=== PATIENT | male | born 1965 | race Caucasian/White ===

== ENCOUNTER → 2021-04-26 12:31 | Outpatient (CLI) | payer BC, SELFPAY ==
[2021-04-26 13:00] LABS: Basophils % 0.4 % (0.1-2.0); Eosinophils # 0.5 K/mm3 (0.0-0.4); Eosinophils % 5.6 % (0.1-12.0); Hematocrit 39.9 % (42.0-52.0); Hemoglobin 12.3 g/dL (14.1-18.0); Lymphocytes # 1.6 K/mm3 (0.7-4.5); Lymphocytes % 19.3 % (10-50); Mean Corpuscular HGB Conc 30.7 g/dL (31.8-35.4); Mean Corpuscular Hemoglobin 26.9 pg (27.0-31.2); Mean Corpuscular Volume 87.6 fl (80-94); Mean Platelet Volume 7.6 fl (7.4-10.4); Monocytes # 0.5 K/mm3 (0.1-1.0); Monocytes % 5.6 % (1.7-9.3); Neutrophils # 5.8 K/mm3 (1.8-7.8); Neutrophils % 69.1 % (37.0-80.0); Platelet Count 256 K/mm3 (142-424); Red Blood Count 4.56 M/mm3 (4.60-6.20); Red Cell Distribution Width 16.1 % (11.5-17.5); White Blood Count 8.4 K/mm3 (4.8-10.8)
[2021-04-29 07:14] LABS: D001-IgE D pteronyssinus 3.76 kU/L (Class III); D002-IgE D farinae 3.83 kU/L (Class III); E001-IgE Cat Dander <0.10 kU/L (Class 0); E005-IgE Dog Dander <0.10 kU/L (Class 0); E072-IgE Mouse Urine <0.10 kU/L (Class 0); G002-IgE Bermuda Grass <0.10 kU/L (Class 0); G006-IgE Timothy Grass <0.10 kU/L (Class 0); I006-IgE Cockroach, German <0.10 kU/L (Class 0); Immunoglobulin E, Total 75 IU/mL (6-495); M001-IgE Penicillium chrysogen <0.10 kU/L (Class 0); M002-IgE Cladosporium herbarum <0.10 kU/L (Class 0); M003-IgE Aspergillus fumigatus <0.10 kU/L (Class 0); M006-IgE Alternaria alternata <0.10 kU/L (Class 0); T001-IgE Maple/Box Elder <0.10 kU/L (Class 0); T003-IgE Common Silver Birch <0.10 kU/L (Class 0); T006-IgE Cedar, Mountain <0.10 kU/L (Class 0); T007-IgE Oak, White <0.10 kU/L (Class 0); T008-IgE Elm, American 0.14 kU/L (Class 0/I); T010-IgE Walnut 1.05 kU/L (Class II); T011-IgE Maple Leaf Sycamore <0.10 kU/L (Class 0); T014-IgE Cottonwood 0.11 kU/L (Class 0/I); T015-IgE Ash, White 0.34 kU/L (Class I); T022-IgE Pecan, Hickory 1.51 kU/L (Class III); T070-IgE White Mulberry <0.10 kU/L (Class 0); W001-IgE Ragweed, Short <0.10 kU/L (Class 0); W011-IgE Thistle, Russian <0.10 kU/L (Class 0); W014-IgE Pigweed, Common <0.10 kU/L (Class 0); W018-IgE Sheep Sorrel <0.10 kU/L (Class 0)
== END ==
PROVIDERS: Visit Provider Internal Medicine Pulmonary Disease
DX: J45.909 Unspecified asthma, uncomplicated (principal)
CPT/HCPCS: 36415; 82785; 85025; 86003

== ENCOUNTER 2021-04-29 10:00 | Outpatient (RCR) | payer BC, SELFPAY ==
--- NOTE | 2021-03-25 13:42 | HMH.SLDYSPHA ---
Speech & Language Evaluation Speech/Language Dysphagia Evaluation Start: 03/25/21 13:27 Freq: ONCE Status: Active Protocol: Document 03/25/21 13:27 GERALD (Rec: 03/25/21 13:42 GERALD [id number]) Dysphagia Assess/Goals/Plan Assessment Date of Evaluation: 03/25/21 Evaluation Type Initial Certification Assessment/Problems Dysphagia Does Patient Qualify for Service Yes Qualify/Failure Comment Based on Modified Barium Results from [facility] on 03/01/2021, Mr. Veliz did exhibit aspiration of thin liquids. Today, he exhibited coughing with thin liquids with no chin tuck. Recommendations PHYSICIAN CERTIFICATION: The specified therapy services are required, authorized, and reviewed every 30 days. Pt will be seen # times/week 2 for # weeks 4 Diet Recommendations Normal Liquid Type Recommendations Normal/Thin SL Swallow Guidelines Standard Aspiration Prec. Dysphagia Swallow Precautions/Strategies Sitting Upright (90 deg),Chin Tuck,Double Swallow,Small Bites and Sips,Alternate Liquids/Solids Plan Anticipate reaching STG in # weeks 2 Anticipate reaching LTG in # weeks 4 Pt/Guardian verbally ack understanding Yes of dx/prognosis/goals G -code Required No STG-Asp During/Laryngeal Closure Use Valsalva maneuver w/wo cues in # 10 trials STG-Asp Aft/Pyrif.-Hyolaryngeal Comp Perform head lift maneuver for # secs 30 w/wo cues in # trials 10 STG-Asp Aft/[place]-Post Phary Wall Use thin/spec. consistency liq.wash w/wo 1 chin-down every #bites w/wo cues in # trials 10 STG-Asp Aft/[place]-Pharyngeal W Remain upright at 90 degrees for 30 min 1 after any po intake w/wo cues in #trials Detention Goals Diet Regular with Liquids Thin Liquids General Information General Current Food Consistancy Regular,Thin Liquids Dentition Good Dentition Oxygen Status Room Air Facial Symmetry Symmetrical Patient Orientation Person,Place,Time,Situation Ability to Follow Directions Excellent Communication Ability No Impairment Voice Voice Quality Weak,Loss of Voice Voice Pitch Diplophonia Voice Loudness Severely Soft/Quiet,Limited Variation Dysphagia:Food Presentation Evaluation Food Type Pureed,Mechanical Soft,Regular ,Liquid,Pudding Normal/Thin Liquid Response
== END 2021-04-29 10:05 | disposition home or self-care (01) ==
LOC: ST 10:00
DX: I71.01 Dissection of thoracic aorta (principal)
CPT/HCPCS: 92526; 92610

== ENCOUNTER → 2021-05-31 10:51 | Outpatient (CLI) | payer BC, SELFPAY ==
--- NOTE | 2021-05-31 11:16 | ECG_ITS ---
APPROVED REPORT Exam: Resting ECG HR:63 bpm ECG Measurements Heart Rate 63 AXES AR 138 P 56 QRSd 92 QRS 89 QT 424 T 39 QTc 433 Conclusion Normal sinus rhythm Incomplete right bundle branch block Borderline ECG Electronically signed by : Isaac Browning MD 05/31/2021 20:59:54
[2021-05-31 12:10] LABS: Basophils % 0.5 % (0.1-2.0); Eosinophils # 0.2 K/mm3 (0.0-0.4); Eosinophils % 3.8 % (0.1-12.0); Hematocrit 40.2 % (42.0-52.0); Hemoglobin 12.5 g/dL (14.1-18.0); Lymphocytes % 15.6 % (10-50); Mean Platelet Volume 6.8 fl (7.4-10.4); Monocytes # 0.4 K/mm3 (0.1-1.0); Monocytes % 5.9 % (1.7-9.3); Neutrophils # 4.8 K/mm3 (1.8-7.8); Neutrophils % 74.2 % (37.0-80.0); Platelet Count 217 K/mm3 (142-424); Red Blood Count 4.79 M/mm3 (4.60-6.20); Red Cell Distribution Width 15.5 % (11.5-17.5); White Blood Count 6.5 K/mm3 (4.8-10.8)
[2021-05-31 12:18] LABS: Chloride 105 mmol/L (98-107); Potassium 3.9 mmoL/L (3.5-5.1); Sodium 141 mmol/L (136-145)
[2021-05-31 12:21] LABS: Anion Gap 10.9 mEq/L (5-15); Blood Urea Nitrogen 16 mg/dl (9-20); Calcium 8.7 mg/dl (8.4-10.2); Carbon Dioxide 29 mmol/L (22.0-30.0); Estimated Glomerular Filt Rate 99 ml/min (>60); GFR (African American) 120 ML/MIN (>60); Glucose 170 mg/dl (74-100)
== END ==
PROVIDERS: Visit Provider Otolaryngology
DX: Z01.812 Encounter for preprocedural laboratory examination (principal); Z11.52 Encounter for screening for COVID-19; R49.0 Dysphonia; J38.01 Paralysis of vocal cords and larynx, unilateral; R05.9 Cough, unspecified
CPT/HCPCS: 36415; 80048; 85025; 93005; C9803; U0003; U0005

== ENCOUNTER 2021-06-01 06:31 | Day surgery (SDC) | payer BC, SELFPAY ==
[2021-05-27 12:56] VITALS: BMI 28.3
[2021-06-01] VITALS (11 sets, daily range): BP systolic 121–168; BP diastolic 63–96; PULSE 59–73; RESP 14–18; TEMP 36.1–36.8; O2SAT 90–97
--- NOTE | 2021-06-01 09:14 | HMH.ANESCL ---
[facility] Anesthesia Checklist - Patient Identification Patient Identification: Arm Band - Structural Data Admitted From: Home Planned Operative Procedure/s: Microlaryngoscopy with Prolaryn Injection Consent for Planned Operative Procedure(s) Verified: Yes Verified Documents: Surgical Consent, History and Physical - NPO Status Verified Time NPO: 00:00 - Additional verifications Anesthesia Reactions: No Hx Blood Transfusions: No Blood Transfusion Reaction: No - Airway Assessment C-Spine Mobility Assessed: Yes (mp2) TMJ Mobility Assessed: Yes Dentition: Good Dentition - Neurological Assessment Level of Consciousness: Awake, Alert - Anesthesia Plan Anesthesia Risk discussed: Yes Anesthesia Plan: Verified ASA Class: III Anesthesia Type: General [facility] History I have reviewed the patient's past medical history: Yes Medical History: Reports:: Cancer (skin), Coronary Artery Disease, Gall Bladder Disease, Gastroesophageal Reflux Disease(GERD), Hiatal Hernia, Home Oxygen, Hypertension Denies:: Diabetes Mellitus Type 1, Diabetes Mellitus Type 2, Internal Pacemaker, MRSA, Seizures *Have you ever received a pneumonia vaccine?: Yes *Have you received a flu vaccine this season?: Yes Other Medical History: Reports: Anemia, Hoarseness, Other. Denies: Blood Transfusion Reaction Anesthesia experience/problems:: nac Laterality Cases: Right: Other, Bilateral: Arthroscopy Knee, Myringotomy (Ear Tubes) Other Surgeries: Yes: Cholecystectomy, Hernia Repair, Other. No: Pacemaker Amputation: No Fractures: Yes - *Social History Last grade of school completed: Advanced degree Smoking Status: Never smoker Alcohol Intake: never Substance Use Type: denies use *Occupational Status:: retired Housing: house Household Members: spouse *Travel in the last 8 weeks: None Family Hx:: Heart Attack
--- NOTE | 2021-06-01 09:15 | HMH.OPNOTE ---
Date of procedure: 06/01/21 Pre-op Diagnosis:: Left true vocal cord paralysis Post-op Diagnosis:: Left true vocal cord paralysis Procedure performed:: Microlaryngoscopy and injection medialization of left true vocal cord Surgeon:: Estiven Nunez MD INTELLIGENCE SPECIALIST:: Rubin Olea Anesthesia: SOPHIA Estimated blood loss (mL): 0 Operative findings:: Left true vocal cord lateralized Operative note:: Patient was brought to the operating room and after adequate general anesthesia a shoulder roll was placed and upper teeth protected with a tooth guard and then an anterior commissure laryngoscope was employed to perform direct laryngoscopy. The laryngoscope was appropriately suspended to visualized the true vocal cords and preprocedure photograph was then taken. Prolaryn gel was then used through a laryngeal needle. The gel was placed lateral to the vocalis muscle until the left true vocal cord was adequately medialized. 2 separate injection sites were used at the mid cord level and at the posterior third of the true vocal cord. Topical anesthesia was then applied with 4% lidocaine on a cottonoid pledget. A postinjection photograph was taken. The laryngoscope and tooth guard were then removed and the procedure concluded. All counts correct blood loss minimal and patient was sent to recovery in stable condition Condition: stable Disposition: PACU (none) Complications:: none
--- NOTE | 2021-06-01 09:15 | HMH.ANESI ---
[facility] Anesthesia Record Part I Intake, IV Amount: 1,100 Estimated blood loss (mL): 5 Urine output (mL): 0 Blood Pressure: 151/80 SaO2: 93 Pulse Rate: 63 Respiratory Rate: 16 Temperature: 97 F Patient is:: Drowsy, Stable Stable to PACU at:: 09:05
[2021-06-01 09:21] LABS: POC Glucose,Bedside 122 (70-110)
--- NOTE | 2021-06-01 09:43 | SUR.PHASEI ---
0936- detailed report given to beckie price in post op. pt left in stable condition at this time.
[2021-06-02 07:39] VITALS: BP 144/88; PULSE 62; TEMP 36.2
--- NOTE | 2021-06-02 07:39 | HMH.ANESII ---
[facility] Anesthesia Record Part II Discharge Time: 09:35 Destination: Surgical Day Care (OP Surgery) PACU nurse assessment reviewed?: Yes Patient Condition:: Good Anesthesia Complications:: None Swallowing reflex intact?: Yes Cyanosis?: No Blood Pressure: 144/88 Pulse Rate: 62 Temperature: 97.1 F Mental Status: Alert & Oriented Pain level:: 0 Nausea and/or vomitting:: None Intake, IV Amount: 0
== END 2021-06-01 10:52 | disposition home or self-care (01) ==
LOC: OR 06:34
PROVIDERS: Visit Provider Otolaryngology
PROC: 0CJS8ZZ Inspection of Larynx, Via Natural or Artificial Opening Endoscopic (ICD-10-PCS; CPT 31573; principal; 2021-06-01 08:00)
DX: J38.01 Paralysis of vocal cords and larynx, unilateral (principal); I25.10 Atherosclerotic heart disease of native coronary artery without angina pectoris; K21.9 Gastro-esophageal reflux disease without esophagitis; I10 Essential (primary) hypertension; Z99.81 Dependence on supplemental oxygen; Z85.828 Personal history of other malignant neoplasm of skin; D64.9 Anemia, unspecified; Z82.3 Family history of stroke; E11.9 Type 2 diabetes mellitus without complications; Z90.49 Acquired absence of other specified parts of digestive tract; Z88.8 Allergy status to other drugs, medicaments and biological substances; Z79.899 Other long term (current) drug therapy
CPT/HCPCS: 31573; 82962; C1878; J2405

== ENCOUNTER → 2021-10-08 11:29 | Outpatient (CLI) | payer BC, SELFPAY ==
[2021-10-08 11:49] LABS: Basophils # 0.1 K/mm3 (0-0.2); Basophils % 1.2 % (0.1-2.0); Eosinophils # 0.3 K/mm3 (0.0-0.4); Eosinophils % 6.3 % (0.1-12.0); Hematocrit 42.5 % (42.0-52.0); Hemoglobin 14.3 g/dL (14.1-18.0); Lymphocytes % 19.5 % (10-50); Mean Corpuscular HGB Conc 33.7 g/dL (31.8-35.4); Mean Corpuscular Hemoglobin 28.7 pg (27.0-31.2); Mean Corpuscular Volume 85.3 fl (80-94); Mean Platelet Volume 8.3 fl (7.4-10.4); Monocytes # 0.3 K/mm3 (0.1-1.0); Monocytes % 5.3 % (1.7-9.3); Neutrophils # 3.5 K/mm3 (1.8-7.8); Neutrophils % 67.6 % (37.0-80.0); Platelet Count 232 K/mm3 (142-424); Red Blood Count 4.98 M/mm3 (4.60-6.20); Red Cell Distribution Width 15.5 % (11.5-17.5); White Blood Count 5.2 K/mm3 (4.8-10.8)
[2021-10-08 13:02] LABS: Anion Gap 9.2 mEq/L (5-15); Blood Urea Nitrogen 15 mg/dl (9-20); Calcium 8.9 mg/dl (8.4-10.2); Carbon Dioxide 30 mmol/L (22.0-30.0); Chloride 104 mmol/L (98-107); Estimated Glomerular Filt Rate 87 ml/min (>60); GFR (African American) 105 ML/MIN (>60); Glucose 116 mg/dl (74-100); Potassium 4.2 mmoL/L (3.5-5.1); Sodium 139 mmol/L (136-145)
== END ==
PROVIDERS: Visit Provider Otolaryngology
DX: Z01.812 Encounter for preprocedural laboratory examination (principal); Z11.52 Encounter for screening for COVID-19; J32.9 Chronic sinusitis, unspecified
CPT/HCPCS: 36415; 80048; 85025; C9803; U0003; U0005

== ENCOUNTER 2021-10-11 06:38 | Day surgery (SDC) | payer BC, SELFPAY ==
[2021-10-10 10:22] VITALS: BMI 30.9
[2021-10-11 07:38] VITALS: BP 153/101; PULSE 54; RESP 18; TEMP 36.1; O2SAT 95
--- NOTE | 2021-10-11 08:59 | P.PN_ITS ---
[facility] Anesthesia Checklist - Patient Identification Patient Identification: Arm Band - Structural Data Admitted From: Home Planned Operative Procedure/s: Laryngoscopy Consent for Planned Operative Procedure(s) Verified: Yes - NPO Status Verified Time NPO: 00:00 - Additional verifications Anesthesia Reactions: No Hx Blood Transfusions: No Blood Transfusion Reaction: No - Airway Assessment C-Spine Mobility Assessed: Yes TMJ Mobility Assessed: Yes Dentition: Good Dentition - Neurological Assessment Level of Consciousness: Awake Hx Seizures: No Numbness or tingling in extremities: No - Anesthesia Plan Anesthesia Risk discussed: Yes Anesthesia Plan: Verified ASA Class: III Anesthesia Type: General [facility] History I have reviewed the patient's past medical history: Yes Medical History: Reports:: Cancer (skin), Coronary Artery Disease, Gall Bladder Disease, Gastroesophageal Reflux Disease(GERD), Hiatal Hernia, Home Oxygen, Hypertension Denies:: Diabetes Mellitus Type 1, Diabetes Mellitus Type 2, Internal Pacemaker, MRSA, Seizures *Have you ever received a pneumonia vaccine?: Yes *Have you received a flu vaccine this season?: Yes Other Medical History: Reports: Anemia, Hoarseness, Other. Denies: Blood Transfusion Reaction Anesthesia experience/problems:: None Laterality Cases: Right: Other, Bilateral: Arthroscopy Knee, Myringotomy (Ear Tubes) Other Surgeries: Yes: Cholecystectomy, Hernia Repair, Other. No: Pacemaker Amputation: No Fractures: Yes - *Social History Last grade of school completed: High school graduate Smoking Status: Never smoker Alcohol Intake: former Substance Use Type: denies use *Occupational Status:: retired Housing: house Household Members: spouse *Travel in the last 8 weeks: None Family Hx:: Cancer, Heart Attack
--- NOTE | 2021-10-11 09:37 | SUR.PREOP ---
Case is cancelled due to not having the appropriate equipment needed for the procedure. To be rescheduled per Dr. Nunez.
== END 2021-10-11 09:40 | disposition home or self-care (01) ==
LOC: OR 06:40
PROVIDERS: Visit Provider Otolaryngology
PROC: 0CJS8ZZ Inspection of Larynx, Via Natural or Artificial Opening Endoscopic (ICD-10-PCS; CPT 31575; principal; 2021-10-11 08:30)
DX: Z53.8 Procedure and treatment not carried out for other reasons (principal); J38.01 Paralysis of vocal cords and larynx, unilateral
CPT/HCPCS: 31575

== ENCOUNTER → 2022-04-25 14:39 | Outpatient (CLI) | payer BC, SELFPAY | PROVIDERS: PCP Internal Medicine; Visit Provider Otolaryngology | DX: T17.308A Unspecified foreign body in larynx causing other injury, initial encounter (principal); R06.83 Snoring; G47.33 Obstructive sleep apnea (adult) (pediatric) | CPT/HCPCS: G0399 ==